=== PATIENT | female | born 1960 | race Caucasian/White ===

== ENCOUNTER 2021-03-06 11:18 | Emergency (ER) | payer MEDICAID, MEDICARE ==
--- NOTE | 2021-03-06 12:14 | EDM.PDOC ---
ED HPI GENERAL MEDICAL PROBLEM - General Stated Complaint: INGROWN TOENAIL Time Seen by Provider: 03/06/21 11:30 Source of Information: Reports: Patient History Limitations: Reports: No Limitations - History of Present Illness INITIAL COMMENTS - FREE TEXT/NARRATIVE: pt c/o pain at sight of right great toe since yesterday no other associated sx, report Hx of ingrown nail. - Related Data Allergies Allergy/AdvReac Type Severity Reaction Status Date / Time No Known Allergies Allergy Verified 01/28/15 03:16 Home Meds: Home Meds DULoxetine [Cymbalta] 30 mg PO BID 01/28/15 [History] Iron 36 mg PO DAILY 01/28/15 [History] metFORMIN [Glucophage] 01/28/15 [History] DULoxetine [Cymbalta] 30 mg PO DAILY 06/02/15 [History] Past Medical History Cardiovascular History: Reports: High Cholesterol, Hypertension, [employer] History: Reports: Musculoskeletal History: Reports: Arthritis, Back Pain, Chronic, Fibromyalgia Psychiatric History: Reports: Depression Endocrine/Metabolic History: Reports: Diabetes, Type II - Past Surgical History GI Surgical History: Reports: Appendectomy, Bariatric Procedure Social & Family History - Living Situation & Occupation Living situation: Reports: ED ROS GENERAL - Review of Systems Review Of Systems: See Below Constitutional: Reports: No Symptoms Respiratory: Reports: No Symptoms Cardiovascular: Reports: No Symptoms ED EXAM, GENERAL - Physical Exam Exam: See Below Exam Limited By: No Limitations General Appearance: Alert, No Apparent Distress Respiratory/Chest: No Respiratory Distress, Lungs Clear Cardiovascular: Normal Peripheral Pulses, Regular Rate, Rhythm Extremities: Other (there is a small skin tear with dried blood at meadial side of left great toe, pt has ingrown toe nail but there are no signs of infection at this time, the area of the tear is mildly tender, pt moves her toe frealy, no warmth or swelling or any discharge. ) Course - Vital Signs Text/Narrative:: pt has minor traumatic injury at right great toe, either accidental or from tight shews , supportive mng was recommended / f /u prn, pt was asked to apply OTC topical antibiotics and keep wound area clean and dry for few days. she is to follow with PCP if new sx or concerns Departure - Departure Time of Disposition: 12:14 Disposition: Home, Self-Care 01 Clinical Impression: Toe abrasion - Discharge Information Referrals: PCP,None [Primary Care Provider] -
[2021-03-06 12:41] VITALS: BP 122/87; PULSE 70
== END 2021-03-06 12:35 | disposition home or self-care (01) ==
LOC: FB.ED 11:18
DX: S90.412A Abrasion, left great toe, initial encounter (principal); E78.00 Pure hypercholesterolemia, unspecified; I10 Essential (primary) hypertension; E11.9 Type 2 diabetes mellitus without complications; I25.2 Old myocardial infarction; Z79.84 Long term (current) use of oral hypoglycemic drugs; Z79.899 Other long term (current) drug therapy; X58.XXXA Exposure to other specified factors, initial encounter
CPT/HCPCS: 99282

== ENCOUNTER 2023-09-15 06:40 | Day surgery (SDC) | payer MEDICARE ==
[2023-09-15] MEDS ORDERED: Midazolam 1 MG/ML 2 ML SDV IV ONE (06:41)
[2023-09-15] MEDS ORDERED: Propofol 200 MG/20 ML SDV IV ONE (06:41)
[2023-09-15] MEDS ORDERED: fentaNYL 100 MCG/2 ML SDV IV ONE (06:41)
[2023-09-15] MEDS ORDERED: Sodium Chloride 0.9% 10 ML Syringe FLUSH PRN (06:45)
[2023-09-15 07:27] VITALS: BP 117/67; PULSE 62
[2023-09-15] MEDS: Lactated Ringers 1,000 ML IV SCH (07:53)
[2023-09-15] MEDS: Simethicone Drops 40 MG/0.6 ML 30 ML Bottle ONE (08:08)
== END 2023-09-15 09:39 | disposition home or self-care (01) ==
LOC: FB.SDS 06:40
PROVIDERS: ATTEND Surgery
DX: Z12.11 Encounter for screening for malignant neoplasm of colon (principal); K57.30 Diverticulosis of large intestine without perforation or abscess without bleeding; J45.909 Unspecified asthma, uncomplicated; I25.10 Atherosclerotic heart disease of native coronary artery without angina pectoris; I10 Essential (primary) hypertension; E66.01 Morbid (severe) obesity due to excess calories; E11.9 Type 2 diabetes mellitus without complications; F17.210 Nicotine dependence, cigarettes, uncomplicated; Z98.890 Other specified postprocedural states; Z68.28 Body mass index [BMI] 28.0-28.9, adult; Z79.899 Other long term (current) drug therapy
CPT/HCPCS: A9270; G0121; J2250; J2704; J3010; J7120; 00812